=== PATIENT | female | born 1965 | race Caucasian/White ===

== ENCOUNTER 2020-09-04 08:09 | Emergency (ER) | payer OTHER ==
[~2020-09-04] VITALS: Ht 172.7 cm; Wt 64.4 kg
[2020-09-04] MEDS ORDERED: DARI7.5T PO (08:28)
[2020-09-04] MEDS ORDERED: METH7.5T2 PO (08:28)
--- NOTE | 2020-09-04 08:30 | NUR ---
at bedside for assessment
--- NOTE | 2020-09-04 08:40 | NUR ---
Radiology at bedside for cehat x-ray
[2020-09-04] MEDS ORDERED: ASPIRIN 325 MG TABLET PO ONE (08:45)
[2020-09-04] MEDS ORDERED: ASPIRIN 325 MG TABLET ONE (08:45)
[2020-09-04 09:07] LABS: BASOPHILS % (AUTO) 0.5 % (0.0-2.0); EOSINOPHILS # (AUTO) 0.5 K/uL (0.0-0.7); EOSINOPHILS % (AUTO) 7.9 % (0.0-7.0); HEMATOCRIT 40.1 % (31.2-41.9); HEMOGLOBIN 13.6 g/dL (10.9-14.3); LYMPHOCYTES # (AUTO) 2.4 K/uL (20.0-40.0); LYMPHOCYTES % (AUTO) 36.6 % (20.5-51.5); MEAN CORPUSCULAR HEMOGLOBIN 33.3 uug (24.7-32.8); MEAN CORPUSCULAR HGB CONC 34 g/dL (32.3-35.6); MEAN CORPUSCULAR VOLUME 97.9 fL (75.5-95.3); MONOCYTES # (AUTO) 0.6 K/uL (2.0-10.0); MONOCYTES % (AUTO) 9.3 % (0.0-11.0); NEUTROPHILS % (AUTO) 45.7 % (38.5-71.5); PLATELET COUNT (AUTO) 283 K/uL (179-408); RED BLOOD CELL COUNT(AUTO) 4.09 MIL/uL (3.63-4.92); WHITE BLOOD COUNT (AUTO) 6.6 K/uL (3.8-11.8)
[2020-09-04 09:39] LABS: BILIRUBIN,DIRECT 0.1 mg/dL (0.0-0.2); BILIRUBIN,TOTAL 0.5 mg/dL (0.2-1.0); CREATININE 0.7 mg/dL (0.6-1.3); TOTAL PROTEIN, SERUM 7.1 g/dL (6.4-8.2)
[2020-09-04] MEDS ORDERED: EPINEPHRINE 1:10,000 1 MG/10 ML DISP.SYRIN ONE (09:41)
[2020-09-04] MEDS ORDERED: EPINEPHRINE 1 MG/1 ML AMP ONE (09:41)
[2020-09-04] MEDS ORDERED: methylPREDNISolone SOD SUCC 125 MG/2 ML VIAL ONE (09:43)
[2020-09-04] MEDS ORDERED: FAMOTIDINE. 20 MG/2 ML VIAL IV ONE (09:44)
--- NOTE | 2020-09-04 11:27 | NUR ---
Patient noted resting at bedside for assessment
--- NOTE | 2020-09-04 13:14 | NUR ---
Patient discharged to home in stable condition. IV taken out, no signs of acute distress noted, patient noted being picked up by . Written and verbal after care instructions given. Patient verbalizes understanding of instructions. Stressed follow up or return to ER for worsening s/s.
[2020-09-04 13:22] VITALS: BP 104/75
== END 2020-09-04 13:11 | disposition home or self-care (01) ==
LOC: ER 08:09
DX: R07.9 Chest pain, unspecified (principal); M06.9 Rheumatoid arthritis, unspecified; R00.1 Bradycardia, unspecified
CPT/HCPCS: 36415; 70030-TC; 71045; 85025; 85730; 93005; A4663; J0171; J2930; J3490

== ENCOUNTER 2021-11-10 13:20 | Emergency (ER) | payer OTHER ==
[~2021-11-10] VITALS: Ht 172.7 cm; Wt 66.2 kg
[~2021-11-10 13:20] MED LIST: DARI7.5T PO; METH7.5T2 PO
[2021-11-10] MEDS ORDERED: ASPIRIN 81 MG TAB.CHEW PO ONE (14:15)
--- NOTE | 2021-11-10 14:21 | NUR ---
PT IS IN ROOM #1A. DR PAYNE EVALUATED THE PT.
[2021-11-10 14:25] LABS: HEMATOCRIT 38.9 % (31.2-41.9); MEAN CORPUSCULAR HEMOGLOBIN 32.8 uug (24.7-32.8); MEAN CORPUSCULAR VOLUME 94.9 fL (75.5-95.3); PLATELET COUNT (AUTO) 285 K/uL (179-408)
[2021-11-10] MEDS ORDERED: ASPIRIN 81 MG TAB.CHEW ONE (14:25)
[2021-11-10 14:34] LABS: CARBON DIOXIDE 30 mmol/L (21-32); CHLORIDE 104 mmol/L (98-107); CREATININE 0.7 mg/dL (0.6-1.3); GLUCOSE 107 mg/dL (74-106); POTASSIUM 4.4 mmol/L (3.5-5.1); UREA NITROGEN, BLOOD 16 mg/dL (7-18)
[2021-11-10 14:50] LABS: ALANINE AMINOTRANSFERASE 20 U/L (14-59); ALKALINE PHOSPHATASE 20 U/L (50-136); ASPARTATE AMINOTRANSFERASE 9 U/L (15-37); BILIRUBIN,DIRECT 0.1 mg/dL (0.0-0.2); BILIRUBIN,TOTAL 0.2 mg/dL (0.2-1.0); TOTAL PROTEIN, SERUM 6.8 g/dL (6.4-8.2)
--- NOTE | 2021-11-10 17:52 | NUR ---
PT WAS D/C'd TO HOME. D/C INSTRUCTIONS GIVEN TO THE PT BY DR FELIPE.
[2021-11-10 17:56] VITALS: BP 132/74
== END 2021-11-10 18:24 | disposition home or self-care (01) ==
LOC: ER 13:20
DX: R07.9 Chest pain, unspecified (principal); M06.9 Rheumatoid arthritis, unspecified
CPT/HCPCS: 99285; 71045; 80076; 80048; 83880; 85025; 85379; 84484 ×2; 36415; 93005; J7040; A4663